=== PATIENT | male | born 1970 | race Caucasian/White ===

== ENCOUNTER 2022-06-05 16:26 | Inpatient (IN) | payer OTHER, SELFPAY ==
--- NOTE | ~2022-06-05 | CT_ITS ---
EXAMINATION: CT ABDOMEN AND PELVIS WITHOUT CONTRAST CLINICAL INFORMATION: 52-year-old male with abdominal pain and constipation, rule out obstruction. COMPARISON: None available. TECHNIQUE: Multidetector volumetric imaging was performed from the superior aspect of the liver through the pubic symphysis. Sagittal and coronal reformatted images were obtained on the technologist's workstation. This CT examination was performed using dose optimization techniques as appropriate, variously including the following: *Automated exposure control *Adjustment of mA and/or kV according to patient size (this includes techniques or standardized protocols for targeted exams where dose is matched to indication/reason for exam; i.e. extremities or head) *Use of iterative reconstruction technique DLP: 1072 mGy-cm FINDINGS: LUNG BASES: The lungs are clear. There is unhealed fracture of 8 deep on the left associated with pleural thickening. LIVER, GALLBLADDER, AND BILIARY TREE: The liver is normal in size, shape, and attenuation. No focal hepatic lesion or biliary ductal dilatation is present. The gallbladder is unremarkable with no evidence of radiopaque gallstones, gallbladder wall thickening, or obvious pericholecystic inflammatory changes. PANCREAS: Unremarkable. SPLEEN: Unremarkable. ADRENAL GLANDS: Unremarkable. KIDNEYS AND URETERS: The kidneys are normal in size, shape, and attenuation. No hydronephrosis, hydroureter, or calculi seen. No perinephric stranding. BLADDER: Unremarkable. GASTROINTESTINAL TRACT: The inflammatory changes surrounding sigmoid colon most likely diverticulitis versus colitis. Correlate clinically. Neoplastic etiology couldn't be excluded . Follow-up by endoscopy is recommended. There is microperforation in the lower wall of sigmoid colon with air bubbles outside the lumen of colon. There is unclear origin collection of gas outside the lumen of bowel in the left upper quadrant: better seen on images 57-47. ABDOMINAL WALL: There is fat-containing left and right inguinal hernias as well as small fat-containing umbilical hernia. LYMPH NODES: Normal. VASCULAR: Unremarkable. PELVIC VISCERA: Unremarkable. OSSEOUS STRUCTURES: There are multilevel degenerative spondylosis. CT/CT abdomen pelvis wo IV con IMPRESSION: Sigmoid colon diverticulitis versus colitis with microperforation. Small amount of free air collection in the mesentery Fleischner guidelines were followed.
[2022-06-05 16:40] VITALS: BP 148/69; PULSE 88; RESP 20; TEMP 37.7; O2SAT 96; BMI 36.6
--- NOTE | 2022-06-05 16:40 | ED.ABDPAIN ---
HPI - Abdominal Pain General Chief Complaint: Abdominal Pain <AMARA Pineda - Last Filed: 06/05/22 16:45> Stated Complaint: urgent care referral, abdomainl pain <AMARA Pineda - Last Filed: 06/05/22 16:45> Time Seen by Provider: 06/05/22 19:43 <AMARA Pineda - Last Filed: 06/05/22 16:45> Source: patient <Mars Mabry MD - Last Filed: 06/06/22 00:49> Mode of arrival: ambulatory <Mars Mabry MD - Last Filed: 06/06/22 00:49> Limitations: no limitations <Mars Mabry MD - Last Filed: 06/06/22 00:49> History of Present Illness HPI narrative: Patient no significant past medical history noticed pain in lower abdomen more on the left side for last 3 days got worse today at noon time assist with nausea poor appetite no fever or chills patient now had similar pain in the past no history of kidney stone no urinary complaints no blood in the stool patient never had colonoscopy <Mars Mabry MD - Last Filed: 06/06/22 00:49> Related Data Allergies/Adverse Reactions: Allergies Allergy/AdvReac Type Severity Reaction Status Date / Time No Known Allergies Allergy Verified 06/05/22 16:46 <AMARA Pineda - Last Filed: 06/05/22 16:45> Review of Systems Review of Systems Yes all other systems are reviewed and are negative <Mars Mabry MD - Last Filed: 06/06/22 00:49> [facility] Social History Social History: Social History Alcohol intake: current Alcohol intake frequency: holidays/special occasions only Alcohol type: beer Smoked in Last 30 Days: Yes Use of substances other than those prescribed or required for medical reasons: No Advance Directives: No Advance Directives Information Provided: Yes <AMARA Pineda - Last Filed: 06/05/22 16:45> Physical Exam ED Vital Signs: Vital Signs - 24 hr 06/05/22 16:40 06/05/22 19:32 06/05/22 20:09 Temperature 99.8 F 97.9 F Pulse Rate 88 95 Respiratory Rate 20 20 16 Blood Pressure 148/69 H 121/74 Pulse Oximetry 96 97 Oxygen Delivery Method Room Air Room Air 06/05/22 21:53 Temperature Pulse Rate 70 Respiratory Rate 20 Blood Pressure 118/42 L Pulse Oximetry 95 Oxygen Delivery Method Room Air BMI result Body Mass Index 36.6 <AMARA Pineda - Last Filed: 06/05/22 16:45> Vital Signs - 24 hr 06/05/22 16:40 06/05/22 19:32 06/05/22 20:09 Temperature 99.8 F 97.9 F Pulse Rate 88 95 Respiratory Rate 20 20 16 Blood Pressure 148/69 H 121/74 Pulse Oximetry 96 97 Oxygen Delivery Method Room Air Room Air 06/05/22 21:53 Temperature Pulse Rate 70 Respiratory Rate 20 Blood Pressure 118/42 L Pulse Oximetry 95 Oxygen Delivery Method Room Air BMI result Body Mass Index 36.6 <Mars Mabry MD - Last Filed: 06/06/22 00:49> Appearance: Alert. Oriented X3. No acute distress. Eyes: No pallor or icterus ENT: Pharynx normal. Oral Mucosa moist Neck: Normal inspection. Neck supple. CVS: Normal heart rate and rhythm. Pulses normal. Respiratory: No respiratory distress. Equal air entry bilateral, no wheezing/rales/rhonchi Abdomen: Soft guarding and tenderness left lower quadrant no rebound tenderness. Bowel sounds are present, no mass palpable, no CVA tenderness Skin: Skin warm and dry. Normal skin color. Normal skin turgor. Extremities: No lower extremity edema. No calf tenderness Neuro: Oriented X 3. No motor deficit. <Mars Mabry MD - Last Filed: 06/06/22 00:49> Course Course Course Narrative: RME-16:40pm - 52yoM presenting to the ED after being sent from [facility] urgent care for sharp lower abdominal pain with associated constipation that started on 06/03/2022 therefore he took meds citrate twice had a small amount movement on Monday and then on Monday he still felt like he had to go therefore he took a whole bottle of Mag citrate and had large amount of stools. Then he went for a walk after eating a baseball amount of food and started having a sharp pain where it was so painful he bent over and cried. Reports he has a high pain tolerance. Reports he has never had this in the past. Was given Toradol IM prior to arrival 60 mg by [facility]. Reports mild symptomatic relief with his pain. Also had an enema today that his helps him with. Last bowel movement was on Monday. Denies any nausea/vomiting, chest pain, shortness of breath, fevers black or bloody stools or any other symptoms complaints or concerns at this time. Plan: Labs, UA, EKG, CT scan abdomen pelvis ordered at this time patient to be sent back to the waiting room to be evaluated in the ED. <AMARA Pineda - Last Filed: 06/05/22 16:45> Medical Decision Making Medical Decision Making [facility] Narrative: Patient lower abdominal pain workup showed diverticulitis in sigmoid colon with microperforation will admit patient for IV antibiotics and surgical re-evaluation <Mars Mabry MD - Last Filed: 06/06/22 00:49> Lab Data [facility] Lab Attestation statement: I reviewed the patient's lab results. <Mars Mabry MD - Last Filed: 06/06/22 00:49> Result Diagrams: 06/05/22 17:35 06/05/22 17:35 <AMARA Pineda - Last Filed: 06/05/22 16:45> Labs: Lab Results 06/05/22 06/05/22 06/05/22 Range/Units 17:35 17:35 17:35 WBC 11.7 H (4.8-10.8) X10*3/uL RBC 4.94 (4.60-5.80) X10*6/uL Hgb 14.4 (14.0-18.0) g/dl Hct 43.6 (42.0-52.0) % MCV 88.3 (80.0-98.0) fL MCH 29.1 (27.0-33.0) pg MCHC 33.0 (31.0-36.0) g/dl RDW 13.0 (11.0-16.0) % Plt Count 266 (160-400) X10*3/uL MPV 8.9 L (9.4-12.4) fL Immature Gran % (Auto) 0.9 H (0.0-0.4) % Neut % (Auto) 88.1 H (45-73) % Lymph % (Auto) 7.1 L (20-40) % [place] % (Auto) 3.7 (2-11) % Eos % (Auto) 0.1 (0-4) % Baso % (Auto) 0.1 (0-2) % Lymph # (Auto) 0.8 L (1.2-4.9) X10*3/uL [place] # (Auto) 0.4 (0.1-1.2) X10*3/uL Eos # (Auto) 0.0 (0.0-0.4) X10*3/uL Baso # (Auto) 0.0 (0.0-0.2) X10*3/uL Abs Immat Gran (auto) 0.10 H (0.00-0.03) X10*3/uL Absolute Neuts (auto) 10.3 H (2.0-8.3) x10*3/uL Absolute Nucleated RBC 0.000 (0.0-0.012) X10*3/uL Nucleated RBC % (auto) 0.0 (0.0-0.2) /100WBC PT 11.8 (10.0-13.1) SEC INR 1.0 (0.9-1.1) Sodium 139 (135-145) mmol/L Potassium 4.1 (3.3-5.1) mmol/L Chloride 106 (96-108) mmol/L Carbon Dioxide 23 (22-29) mmol/L Anion Gap 14 (12-20) BUN 11 (9-16) mg/dL Creatinine 0.91 (0.5-1.4) mg/dL Estim Creat Clear Calc 128.3 Estimated GFR > 60 Random Glucose 107 (60-115) mg/dL Lactic Acid (0.5-2.0) mmol/L Calcium 8.8 (8.4-10.2) mg/dL Magnesium 2.3 (1.6-2.6) mg/dL Total Bilirubin 0.3 (0.0-1.0) mg/dL AST 11 (5-37) U/L ALT 12 (0-40) U/L Alkaline Phosphatase 71 (39-117) U/L Total Protein 6.7 (6.5-8.0) g/dL Albumin 3.9 (3.5-5.0) g/dL Lipase 21 (8-78) U/L Urine Color Urine Appearance Urine pH (5.0-9.0) Ur Specific [place] (1.005-1.025) Urine Protein (Neg-Trace) mg/dL Urine Glucose (UA) (Negative) mg/dL Urine Ketones (Negative) mg/dL Urine Blood (Negative) Urine Nitrite (Negative) Ur Leukocyte Esterase (Negative) Urine RBC (0-2) /HPF Urine WBC (0-5) /HPF Ur Squamous Epith Cells (0-2) /HPF Urine Bacteria (None Seen) Hyaline Casts (0-2) /LPF Influenza Type A (PCR) (Negative) Influenza Type B (PCR) (Negative) RSV RNA Qual (PCR) (Negative) SARS-CoV-2 RNA (RT-PCR) (Negative) 06/05/22 06/05/22 06/05/22 Range/Units 17:35 20:00 22:03 WBC (4.8-10.8) X10*3/uL RBC (4.60-5.80) X10*6/uL Hgb (14.0-18.0) g/dl Hct (42.0-52.0) % MCV (80.0-98.0) fL MCH (27.0-33.0) pg MCHC (31.0-36.0) g/dl RDW (11.0-16.0) % Plt Count (160-400) X10*3/uL MPV (9.4-12.4) fL Immature Gran % (Auto) (0.0-0.4) % Neut % (Auto) (45-73) % Lymph % (Auto) (20-40) % [place] % (Auto) (2-11) % Eos % (Auto) (0-4) % Baso % (Auto) (0-2) % Lymph # (Auto) (1.2-4.9) X10*3/uL [place] # (Auto) (0.1-1.2) X10*3/uL Eos # (Auto) (0.0-0.4) X10*3/uL Baso # (Auto) (0.0-0.2) X10*3/uL Abs Immat Gran (auto) (0.00-0.03) X10*3/uL Absolute Neuts (auto) (2.0-8.3) x10*3/uL Absolute Nucleated RBC (0.0-0.012) X10*3/uL Nucleated RBC % (auto) (0.0-0.2) /100WBC PT (10.0-13.1) SEC INR (0.9-1.1) Sodium (135-145) mmol/L Potassium (3.3-5.1) mmol/L Chloride (96-108) mmol/L Carbon Dioxide (22-29) mmol/L Anion Gap (12-20) BUN (9-16) mg/dL Creatinine (0.5-1.4) mg/dL Estim Creat Clear Calc Estimated GFR Random Glucose (60-115) mg/dL Lactic Acid 1.0 (0.5-2.0) mmol/L Calcium (8.4-10.2) mg/dL Magnesium (1.6-2.6) mg/dL Total Bilirubin (0.0-1.0) mg/dL AST (5-37) U/L ALT (0-40) U/L Alkaline Phosphatase (39-117) U/L Total Protein (6.5-8.0) g/dL Albumin (3.5-5.0) g/dL Lipase (8-78) U/L Urine Color Yellow Urine Appearance Clear Urine pH 5.5 (5.0-9.0) Ur Specific [place] 1.020 (1.005-1.025) Urine Protein 30 (1+) H (Neg-Trace) mg/dL Urine Glucose (UA) Negative (Negative) mg/dL Urine Ketones Trace (Negative) mg/dL Urine Blood Negative (Negative) Urine Nitrite Negative (Negative) Ur Leukocyte Esterase Negative (Negative) Urine RBC 3-5 H (0-2) /HPF Urine WBC 0-5 (0-5) /HPF Ur Squamous Epith Cells 0-2 (0-2) /HPF Urine Bacteria None Seen (None Seen) Hyaline Casts 0-2 (0-2) /LPF Influenza Type A (PCR) NEGATIVE (Negative) Influenza Type B (PCR) NEGATIVE (Negative) RSV RNA Qual (PCR) NEGATIVE (Negative) SARS-CoV-2 RNA (RT-PCR) NEGATIVE (Negative) <AMARA Pineda - Last Filed: 06/05/22 16:45> Lab Results 06/05/22 06/05/22 06/05/22 Range/Units 17:35 17:35 17:35 WBC 11.7 H (4.8-10.8) X10*3/uL RBC 4.94 (4.60-5.80) X10*6/uL Hgb 14.4 (14.0-18.0) g/dl Hct 43.6 (42.0-52.0) % MCV 88.3 (80.0-98.0) fL MCH 29.1 (27.0-33.0) pg MCHC 33.0 (31.0-36.0) g/dl RDW 13.0 (11.0-16.0) % Plt Count 266 (160-400) X10*3/uL MPV 8.9 L (9.4-12.4) fL Immature Gran % (Auto) 0.9 H (0.0-0.4) % Neut % (Auto) 88.1 H (45-73) % Lymph % (Auto) 7.1 L (20-40) % [place] % (Auto) 3.7 (2-11) % Eos % (Auto) 0.1 (0-4) % Baso % (Auto) 0.1 (0-2) % Lymph # (Auto) 0.8 L (1.2-4.9) X10*3/uL [place] # (Auto) 0.4 (0.1-1.2) X10*3/uL Eos # (Auto) 0.0 (0.0-0.4) X10*3/uL Baso # (Auto) 0.0 (0.0-0.2) X10*3/uL Abs Immat Gran (auto) 0.10 H (0.00-0.03) X10*3/uL Absolute Neuts (auto) 10.3 H (2.0-8.3) x10*3/uL Absolute Nucleated RBC 0.000 (0.0-0.012) X10*3/uL Nucleated RBC % (auto) 0.0 (0.0-0.2) /100WBC PT 11.8 (10.0-13.1) SEC INR 1.0 (0.9-1.1) Sodium 139 (135-145) mmol/L Potassium 4.1 (3.3-5.1) mmol/L Chloride 106 (96-108) mmol/L Carbon Dioxide 23 (22-29) mmol/L Anion Gap 14 (12-20) BUN 11 (9-16) mg/dL Creatinine 0.91 (0.5-1.4) mg/dL Estim Creat Clear Calc 128.3 Estimated GFR > 60 Random Glucose 107 (60-115) mg/dL Lactic Acid (0.5-2.0) mmol/L Calcium 8.8 (8.4-10.2) mg/dL Magnesium 2.3 (1.6-2.6) mg/dL Total Bilirubin 0.3 (0.0-1.0) mg/dL AST 11 (5-37) U/L ALT 12 (0-40) U/L Alkaline Phosphatase 71 (39-117) U/L Total Protein 6.7 (6.5-8.0) g/dL Albumin 3.9 (3.5-5.0) g/dL Lipase 21 (8-78) U/L Urine Color Urine Appearance Urine pH (5.0-9.0) Ur Specific [place] (1.005-1.025) Urine Protein (Neg-Trace) mg/dL Urine Glucose (UA) (Negative) mg/dL Urine Ketones (Negative) mg/dL Urine Blood (Negative) Urine Nitrite (Negative) Ur Leukocyte Esterase (Negative) Urine RBC (0-2) /HPF Urine WBC (0-5) /HPF Ur Squamous Epith Cells (0-2) /HPF Urine Bacteria (None Seen) Hyaline Casts (0-2) /LPF Influenza Type A (PCR) (Negative) Influenza Type B (PCR) (Negative) RSV RNA Qual (PCR) (Negative) SARS-CoV-2 RNA (RT-PCR) (Negative) 06/05/22 06/05/22 06/05/22 Range/Units 17:35 20:00 22:03 WBC (4.8-10.8) X10*3/uL RBC (4.60-5.80) X10*6/uL Hgb (14.0-18.0) g/dl Hct (42.0-52.0) % MCV (80.0-98.0) fL MCH (27.0-33.0) pg MCHC (31.0-36.0) g/dl RDW (11.0-16.0) % Plt Count (160-400) X10*3/uL MPV (9.4-12.4) fL Immature Gran % (Auto) (0.0-0.4) % Neut % (Auto) (45-73) % Lymph % (Auto) (20-40) % [place] % (Auto) (2-11) % Eos % (Auto) (0-4) % Baso % (Auto) (0-2) % Lymph # (Auto) (1.2-4.9) X10*3/uL [place] # (Auto) (0.1-1.2) X10*3/uL Eos # (Auto) (0.0-0.4) X10*3/uL Baso # (Auto) (0.0-0.2) X10*3/uL Abs Immat Gran (auto) (0.00-0.03) X10*3/uL Absolute Neuts (auto) (2.0-8.3) x10*3/uL Absolute Nucleated RBC (0.0-0.012) X10*3/uL Nucleated RBC % (auto) (0.0-0.2) /100WBC PT (10.0-13.1) SEC INR (0.9-1.1) Sodium (135-145) mmol/L Potassium (3.3-5.1) mmol/L Chloride (96-108) mmol/L Carbon Dioxide (22-29) mmol/L Anion Gap (12-20) BUN (9-16) mg/dL Creatinine (0.5-1.4) mg/dL Estim Creat Clear Calc Estimated GFR Random Glucose (60-115) mg/dL Lactic Acid 1.0 (0.5-2.0) mmol/L Calcium (8.4-10.2) mg/dL Magnesium (1.6-2.6) mg/dL Total Bilirubin (0.0-1.0) mg/dL AST (5-37) U/L ALT (0-40) U/L Alkaline Phosphatase (39-117) U/L Total Protein (6.5-8.0) g/dL Albumin (3.5-5.0) g/dL Lipase (8-78) U/L Urine Color Yellow Urine Appearance Clear Urine pH 5.5 (5.0-9.0) Ur Specific [place] 1.020 (1.005-1.025) Urine Protein 30 (1+) H (Neg-Trace) mg/dL Urine Glucose (UA) Negative (Negative) mg/dL Urine Ketones Trace (Negative) mg/dL Urine Blood Negative (Negative) Urine Nitrite Negative (Negative) Ur Leukocyte Esterase Negative (Negative) Urine RBC 3-5 H (0-2) /HPF Urine WBC 0-5 (0-5) /HPF Ur Squamous Epith Cells 0-2 (0-2) /HPF Urine Bacteria None Seen (None Seen) Hyaline Casts 0-2 (0-2) /LPF Influenza Type A (PCR) NEGATIVE (Negative) Influenza Type B (PCR) NEGATIVE (Negative) RSV RNA Qual (PCR) NEGATIVE (Negative) SARS-CoV-2 RNA (RT-PCR) NEGATIVE (Negative) <Mars Mabry MD - Last Filed: 06/06/22 00:49> Radiology Impression Discussion of test interpretation with radiology: I have reviewed the radiologist's reading. <Mars Mabry MD - Last Filed: 06/06/22 00:49> Radiologist Impression: Sigmoid colon diverticulitis versus colitis with microperforation. Small amount of free air collection in the mesentery ? Fleischner guidelines were followed. <Mars Mabry MD - Last Filed: 06/06/22 00:49> Medications Administered Generic Name Dose Route Start Last Admin Trade Name Freq PRN Reason Stop Dose Admin Sodium Chloride 3 ml 06/06/22 00:00 06/06/22 00:44 0.9 % Sodium Chloride Flush 3 Ml Syringe IVFLUSH Not Given QSHIFT DEREJE Discontinued Medications Generic Name Dose Route Start Last Admin Trade Name Freq PRN Reason Stop Dose Admin Sodium Chloride 1,000 mls @ 999 mls/hr 06/05/22 19:44 06/05/22 21:30 Ns IV 06/05/22 20:44 Infused .Q1H1M ONE Infusion Piperacillin Sod/Tazobactam 50 mls @ 100 mls/hr 06/05/22 19:45 06/05/22 20:45 Sod 3.375 gm/ Sodium Chloride IV 06/05/22 20:14 Infused ONCE ONE Infusion Morphine Sulfate 4 mg 06/05/22 19:45 06/05/22 20:09 Morphine Sulfate 4 Mg/Ml Cartridge IVPUSH 06/05/22 19:46 4 mg ONCE ONE Administration Protocol Ondansetron HCl 4 mg 06/05/22 19:45 06/05/22 20:09 Ondansetron Hcl 4 Mg/2 Ml Vial IVPUSH 06/05/22 19:46 4 mg ONCE ONE Administration <AMARA Pineda - Last Filed: 06/05/22 16:45> Medications Administered Generic Name Dose Route Start Last Admin Trade Name Freq PRN Reason Stop Dose Admin Sodium Chloride 3 ml 06/06/22 00:00 06/06/22 00:44 0.9 % Sodium Chloride Flush 3 Ml Syringe IVFLUSH Not Given QSHIFT DEREJE Discontinued Medications Generic Name Dose Route Start Last Admin Trade Name Freq PRN Reason Stop Dose Admin Sodium Chloride 1,000 mls @ 999 mls/hr 06/05/22 19:44 06/05/22 21:30 Ns IV 06/05/22 20:44 Infused .Q1H1M ONE Infusion Piperacillin Sod/Tazobactam 50 mls @ 100 mls/hr 06/05/22 19:45 06/05/22 20:45 Sod 3.375 gm/ Sodium Chloride IV 06/05/22 20:14 Infused ONCE ONE Infusion Morphine Sulfate 4 mg 06/05/22 19:45 06/05/22 20:09 Morphine Sulfate 4 Mg/Ml Cartridge IVPUSH 06/05/22 19:46 4 mg ONCE ONE Administration Protocol Ondansetron HCl 4 mg 06/05/22 19:45 06/05/22 20:09 Ondansetron Hcl 4 Mg/2 Ml Vial IVPUSH 06/05/22 19:46 4 mg ONCE ONE Administration <Mars Mabry MD - Last Filed: 06/06/22 00:49> Discharge Plan Discharge Clinical Impression: Diverticulitis <AMARA Pineda - Last Filed: 06/05/22 16:45> Patient Disposition: Admitted As Inpatient <AMARA Pineda - Last Filed: 06/05/22 16:45>
[2022-06-05 17:48] LABS: MANUAL DIFF FLAG NO
[2022-06-05 17:57] LABS: Prothrombin Time 11.8 SEC (10.0-13.1)
[2022-06-05 18:04] LABS: Alanine Aminotransferase 12 U/L (0-40); Albumin Level 3.9 g/dL (3.5-5.0); Alkaline Phosphatase 71 U/L (39-117); Anion Gap 14 (12-20); Aspartate Amino Transferase 11 U/L (5-37); Bilirubin Total 0.3 mg/dL (0.0-1.0); Blood Urea Nitrogen 11 mg/dL (9-16); Calcium 8.8 mg/dL (8.4-10.2); Carbon Dioxide 23 mmol/L (22-29); Chloride 106 mmol/L (96-108); Creatinine Clr Calc Pharmacy 128.3; Estimated Glomerular Filt Rate > 60; Glucose Random 107 mg/dL (60-115); Lipase 21 U/L (8-78); Magnesium 2.3 mg/dL (1.6-2.6); Potassium 4.1 mmol/L (3.3-5.1); Sodium 139 mmol/L (135-145); Total Protein 6.7 g/dL (6.5-8.0)
[2022-06-05 18:14] LABS: Basophils Percent Auto 0.1 % (0-2); Eosinophils Percent Auto 0.1 % (0-4); Hematocrit 43.6 % (42.0-52.0); Hemoglobin 14.4 g/dl (14.0-18.0); Imm Gran Pct Auto 0.9 % (0.0-0.4); Lymphocytes Absolute Auto 0.8 X10*3/uL (1.2-4.9); Lymphocytes Percent Auto 7.1 % (20-40); Mean Corpuscular Hemoglobin 29.1 pg (27.0-33.0); Mean Corpuscular Volume 88.3 fL (80.0-98.0); Mean Platelet Volume 8.9 fL (9.4-12.4); Monocytes Absolute Auto 0.4 X10*3/uL (0.1-1.2); Monocytes Percent Auto 3.7 % (2-11); Neutrophils Absolute Auto 10.3 x10*3/uL (2.0-8.3); Neutrophils Percent Auto 88.1 % (45-73); Platelet Count 266 X10*3/uL (160-400); Red Blood Count 4.94 X10*6/uL (4.60-5.80); White Blood Count 11.7 X10*3/uL (4.8-10.8)
[2022-06-05 18:27] LABS: Influenza A PCR NEGATIVE (Negative); Influenza B PCR NEGATIVE (Negative); Resp Syncy Virus RNA Qual PCR NEGATIVE (Negative); SARS COV2 PCR INHOUSE NEGATIVE (Negative)
[2022-06-05 19:32] VITALS: BP 121/74; PULSE 95; RESP 20; TEMP 36.6; O2SAT 97
[2022-06-05 20:09] VITALS: RESP 16
[2022-06-05] MEDS: ondansetron HCL 4 MG/2 ML VIAL IVPUSH (20:09)
[2022-06-05] MEDS: Piperacillin Sodium/Tazobactam 3.375 GM in 0.9 % Sodium Chloride 50 ML IV (20:09)
[2022-06-05] MEDS: Morphine Sulfate 4 MG/ML CARTRIDGE IVPUSH (20:09)
[2022-06-05] MEDS: 0.9 % Sodium Chloride 1,000 ML 999 ML IV (20:12)
--- NOTE | 2022-06-05 20:17 | PC.NURSE ---
Patent is alert and oriented x3. VSS. Patient is able to make his needs know. Patient complains of constant lower abdominal pain 7/10 at present. Provider at bedside, informed patient that he will stay overnight for diagnosis of diverticulitis with microperforation and instructed patient in need for NPO to rest his bowels. patient verbalized understanding. Per Dr. Mabry blood draw needed for lactic acid only, blood cultures are not needed at this time. 20 G IV line established in R AC, lactic acid drawn and sent to the lab. Patient medicated per APR. Call [place] withim patient's reach. Patient's spouse is at bedside.
[2022-06-05 21:53] VITALS: BP 118/42; PULSE 70; RESP 20; O2SAT 95
[2022-06-05 22:12] LABS: Appearance Urine Clear; Color Urine Yellow; Glucose Urine UA Negative (Negative); Leukocyte Esterase Urine Negative (Negative); Nitrite Urine Negative (Negative); PH 5.5 (5.0-9.0); UMIC TRIGGER UACC YES; Urine Blood Negative (Negative); Urine Ketones Trace mg/dL (Negative); Urine Protein 30 (1+) mg/dL (Neg-Trace)
[2022-06-05 22:14] LABS: Bacteria Urine None Seen (None Seen); Hyaline Casts Urine 0-2 /LPF (0-2); Squamous Epithelial Cell Urine 0-2 /HPF (0-2); WBC Urine 0-5 /HPF (0-5)
--- NOTE | 2022-06-05 23:21 | PM.IMHP ---
History of Present Illness Date of Service: 06/05/22 Chief Complaint: Abdominal Pain This is a 52-year-old male with no pertinent past medical history and not on prescription medications presents to the emergency department for evaluation of abdominal discomfort. Patient states that it started 3 days ago, on the left side, constant, nonradiating and without any relieving factors. Soon it generalized associated with nausea and poor appetite. No similar complaints in the past. Patient denies fever, chills, vomiting, chest discomfort, palpitations, shortness of breath, changes in urinary habits. Does endorse constipation. In the emergency department imaging concerning for diverticulitis with questionable microperforation. Review of Systems Constitutional: Constitutional: Reports lethargy Cardiovascular: Cardiovascular: Reports no additional cardiovascular complaints Respiratory: Respiratory: Reports no additional respiratory complaints Gastrointestinal: Gastrointestinal: Reports abdominal pain and Reports nausea Genitourinary: Genitourinary: Reports no additional male genitourinary complaints PMFSH Pertinent family history: No family history of CAD Social History Alcohol intake: current Alcohol intake frequency: holidays/special occasions only Alcohol type: beer Smoked in Last 30 Days: Yes Use of substances other than those prescribed or required for medical reasons: No Advance Directives: No Advance Directives Information Provided: Yes Meds Allergies Allergy/AdvReac Type Severity Reaction Status Date / Time No Known Allergies Allergy Verified 06/05/22 16:46 Physical Exam Vital Signs and Narrative: Vital Signs: Last Vital Signs Temp 97.9 F 06/05/22 19:32 Pulse 70 06/05/22 21:53 Resp 20 06/05/22 21:53 BP 118/42 L 06/05/22 21:53 Pulse Ox 95 06/05/22 21:53 O2 Del Method Room Air 06/05/22 21:53 BMI result Body Mass Index 36.6 Middle-aged male lying in bed in mild distress Neck supple, no JVD Regular rate and rhythm, S1-S2 heard Regular breath sounds bilaterally, no wheezing or crackles appreciated Abdomen with generalized tenderness, no guarding, no rigidity, no rebound tenderness Patient is awake, alert and oriented to self, place, time and person ; no focal motor deficit Psych: Normal mood No pedal edema Results Labs 06/05/22 17:35 06/05/22 17:35 Labs: Laboratory Results - last 24 hr 06/05/22 06/05/22 06/05/22 17:35 17:35 17:35 MCV 88.3 MCH 29.1 MCHC 33.0 RDW 13.0 Plt Count 266 MPV 8.9 L Immature Gran % (Auto) 0.9 H Neut % (Auto) 88.1 H Lymph % (Auto) 7.1 L [place] % (Auto) 3.7 Eos % (Auto) 0.1 Baso % (Auto) 0.1 Lymph # (Auto) 0.8 L [place] # (Auto) 0.4 Eos # (Auto) 0.0 Baso # (Auto) 0.0 Abs Immat Gran (auto) 0.10 H Absolute Neuts (auto) 10.3 H Absolute Nucleated RBC 0.000 Nucleated RBC % (auto) 0.0 PT 11.8 INR 1.0 Anion Gap 14 Estim Creat Clear Calc 128.3 Estimated GFR > 60 Random Glucose 107 Lactic Acid Calcium 8.8 Magnesium 2.3 Total Bilirubin 0.3 AST 11 ALT 12 Alkaline Phosphatase 71 Total Protein 6.7 Albumin 3.9 Lipase 21 Urine Color Urine Appearance Urine pH Ur Specific [place] Urine Protein Urine Glucose (UA) Urine Ketones Urine Blood Urine Nitrite Ur Leukocyte Esterase Urine RBC Urine WBC Ur Squamous Epith Cells Urine Bacteria Hyaline Casts Influenza Type A (PCR) Influenza Type B (PCR) RSV RNA Qual (PCR) SARS-CoV-2 RNA (RT-PCR) 06/05/22 06/05/22 06/05/22 17:35 20:00 22:03 MCV MCH MCHC RDW Plt Count MPV Immature Gran % (Auto) Neut % (Auto) Lymph % (Auto) [place] % (Auto) Eos % (Auto) Baso % (Auto) Lymph # (Auto) [place] # (Auto) Eos # (Auto) Baso # (Auto) Abs Immat Gran (auto) Absolute Neuts (auto) Absolute Nucleated RBC Nucleated RBC % (auto) PT INR Anion Gap Estim Creat Clear Calc Estimated GFR Random Glucose Lactic Acid 1.0 Calcium Magnesium Total Bilirubin AST ALT Alkaline Phosphatase Total Protein Albumin Lipase Urine Color Yellow Urine Appearance Clear Urine pH 5.5 Ur Specific [place] 1.020 Urine Protein 30 (1+) H Urine Glucose (UA) Negative Urine Ketones Trace Urine Blood Negative Urine Nitrite Negative Ur Leukocyte Esterase Negative Urine RBC 3-5 H Urine WBC 0-5 Ur Squamous Epith Cells 0-2 Urine Bacteria None Seen Hyaline Casts 0-2 Influenza Type A (PCR) NEGATIVE Influenza Type B (PCR) NEGATIVE RSV RNA Qual (PCR) NEGATIVE SARS-CoV-2 RNA (RT-PCR) NEGATIVE Imaging Radiologist's Impressions: Impressions Abdomen/Pelvis CT 06/05/22 17:20 IMPRESSION: Sigmoid colon diverticulitis versus colitis with microperforation. Small amount of free air collection in the mesentery Fleischner guidelines were followed. Assessment and Plan (1) Diverticulitis: Status: Acute Plan This is a 52-year-old male with no pertinent past medical history and not on prescription medications presents to the emergency department for evaluation of abdominal discomfort. #. Acute sigmoid diverticulitis: Will admit patient for pain control. Initiating empiric IV antibiotics. Blood cultures and lactic acid obtained. Will consult General surgery for questionable microperforation. Does not have an acute abdomen at admission. Will keep NPO DVT prophylaxis: Lovenox 40 mg daily NPO Full code Admit as inpatient and will require two night minimum hospital stay for IV antibiotics and IV opioids p.r.n. Time Spent With Patient Time: Total time managing care of this patient today ____ minutes. Quality Stroke Does the patient have a stroke diagnosis?: No VTE Prior VTE?: No VTE Risk Level:: Medical - moderate - high VTE Device Contraindication: Treatment Not Indicated VTE Drug Contraindication: N/A - Med Ordered
--- OUTSIDE RECORDS SUMMARY | 2022-06-05 23:31 | XMS_ITS | Continuity of Care Document ---
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 Refills 0, Soft Stop, Pain , Moderate, 10/28/19 23:37:00 EDT, Route to Pharmacy Electronically, [facility]/pharmacy #[id number], Partial fill uponpatient request, 182.88, cm, 06/12/19 9:34:00 EDT,... 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 large sneeze and felt a crack in the middle of his chest. Has ongoing severe pain just to R of sternum; Reason: Other:; Traumatic Chest Pain; Clinical Question(s): Other:; Pneumothorax, Fracture COMPARISON: None. FINDINGS: LINES AND TUBES: None. LUNGS AND PLEURA: Low lung volumes with mild basilar atelectasis. Lungs are otherwise clear with no consolidation. No pleural effusion. No pneumothorax. HEART, MEDIASTINUM AND FORTUNATO: Heart is normal in size. Normal mediastinal and hilar contour. BONES AND SOFT TISSUES: No acute abnormality. IMPRESSION: Low lung volumes with mild basilar atelectasis. No acute abnormality. WSN: [id number] Ordering Physician: Rashaun Price Dictated By: William Hart MD Dictated Date/Time: 10/28/19 7:07 pm Reviewed By: William Hart MD Signed By: William Hart MD Signed Date/Time: 10/28/19 7:07 pm Transcribed By: TIERRA Transcribed Date/Time: 10/28/19 7:07 pm Vital Signs Most recent to oldest [Reference Range]: 1 2 3 Oxygen Saturation [94-100 %] 99 % (10/28/19 11:50 PM) 99 % (10/28/19 9:22 PM) 97 % (10/28/19 8:17 PM) Pulse Rate [55-90 bpm] 78 bpm (10/28/19 11:50 PM) 80 bpm (10/28/19 9:22 PM) 89 bpm (10/28/19 8:17 PM) Blood Pressure [90-138/55-84 mm Hg] 142/74mm Hg *H* (10/28/19 11:50 PM) 113/63mm Hg (10/28/19 9:22 PM) 119/64mm Hg (10/28/19 8:17 PM) Respiratory Rate [16-30 br/min] 18 br/min (10/28/19 11:50 PM) 18 br/min (10/28/19 11:49 PM) 18 br/min (10/28/19 9:22 PM) Temperature [96.8-100.4 DegF] 98.1 DegF (10/28/19 6:53 PM) Mode of Delivery (Oxygen) Room air (10/28/19 11:50 PM) Room air (10/28/19 9:22 PM) Room air (10/28/19 8:17 PM) Blood pressure sites Arm, left (10/28/19 11:50 PM) Arm, left (10/28/19 9:22 PM) Arm, left (10/28/19 8:17 PM) Temperature Route Oral (10/28/19 6:53 PM)
[2022-06-06 01:24] VITALS: BP 113/61; PULSE 71; RESP 20; O2SAT 96
--- NOTE | 2022-06-06 02:58 | PC.NURSE ---
video operator outreached hospitalist regarding need for blood cultures as pt with antibiotics orders. Per Dr Yee pt has already received ABX and is not septic at this time so cultures are not required/needed.
[2022-06-06] MEDS: Piperacillin Sodium/Tazobactam 4.5 GM in 0.9 % Sodium Chloride 100 ML IV ×4 (02:59→19:32)
[2022-06-06] MEDS: Morphine Sulfate 4 MG/ML CARTRIDGE IVPUSH ×4 (03:15→19:32)
[2022-06-06 05:59] LABS: MANUAL DIFF FLAG NO
[2022-06-06 06:07] LABS: Basophils Percent Auto 0.1 % (0-2); Eosinophils Percent Auto 0.4 % (0-4); Hemoglobin 13.3 g/dl (14.0-18.0); Imm Gran Abs Auto 0.04 X10*3/uL (0.00-0.03); Imm Gran Pct Auto 0.4 % (0.0-0.4); Lymphocytes Absolute Auto 1.1 X10*3/uL (1.2-4.9); Mean Corpuscular HGB Conc 32.4 g/dl (31.0-36.0); Mean Corpuscular Hemoglobin 29.2 pg (27.0-33.0); Mean Corpuscular Volume 89.9 fL (80.0-98.0); Mean Platelet Volume 8.8 fL (9.4-12.4); Monocytes Absolute Auto 0.5 X10*3/uL (0.1-1.2); Monocytes Percent Auto 5.5 % (2-11); Neutrophils Absolute Auto 7.3 x10*3/uL (2.0-8.3); Neutrophils Percent Auto 81.6 % (45-73); Platelet Count 263 X10*3/uL (160-400); Red Blood Count 4.56 X10*6/uL (4.60-5.80); Red Cell Distribution Width 13.2 % (11.0-16.0); White Blood Count 8.9 X10*3/uL (4.8-10.8)
[2022-06-06 06:20] LABS: Anion Gap 10 (12-20); Blood Urea Nitrogen 7 mg/dL (9-16); Calcium 8.4 mg/dL (8.4-10.2); Carbon Dioxide 25 mmol/L (22-29); Chloride 108 mmol/L (96-108); Creatinine Clr Calc Pharmacy 137.3; Estimated Glomerular Filt Rate > 60; Glucose Random 102 mg/dL (60-115); Sodium 139 mmol/L (135-145)
--- NOTE | 2022-06-06 06:48 | PC.NURSE ---
Assumed care of pt. at 2300. Pt. resting in bed at this time. Pt. reported pain and was medicated with morphine per APR. IV abx given. Cultures were not obtained, vp information technology spoke with hospitalist and no need for cultures at this point. Pt. is alert and oriented.
--- NOTE | 2022-06-06 07:05 | PM.CNGS ---
History of Present Illness Consult details Consult date: 06/06/22 Narrative: Patient is a 52-year-old male presents here with approximately 1 day history of progressively worsening lower abdominal pain. Because of progressive symptoms, he presents to the emergency department for further evaluation. He has never had such symptoms before. He is passing flatus currently. Prior to this, patient was tolerating a regular diet, having normal bowel habits. He had colonoscopy approximately 10 years ago which he states was within normal limits. Chart was reviewed and patient evaluated. [facility] Social History Social History Alcohol intake: current Alcohol intake frequency: holidays/special occasions only Alcohol type: beer Smoked in Last 30 Days: Yes Use of substances other than those prescribed or required for medical reasons: No Advance Directives: No Advance Directives Information Provided: Yes Meds Allergies Allergy/AdvReac Type Severity Reaction Status Date / Time No Known Allergies Allergy Verified 06/05/22 16:46 Active Medications: Current Medications Acetaminophen (Acetaminophen 325 Mg Tablet) 650 mg PO Q6H PRN PRN Reason: Pain, Mild (Pain Scale 1-3) Enoxaparin Sodium (Enoxaparin Sodium 40 Mg/0.4 Ml Syringe) 40 mg SUBCUT Q24H [facility] Piperacillin Sod/Tazobactam (Sod 4.5 gm/ Sodium Chloride) 100 mls @ 200 mls/hr IV Q6H [facility] Last Infusion: 06/06/22 06:57 Dose: Infused Melatonin (Melatonin 3 Mg Tablet) 6 mg PO BEDTIME PRN PRN Reason: Insomnia Morphine Sulfate (Morphine Sulfate 4 Mg/Ml Cartridge) 4 mg IVPUSH Q4H PRN; Protocol PRN Reason: Pain, Severe (Pain Scale 7-10) Last Admin: 06/06/22 03:15 Dose: 4 mg Ondansetron HCl (Ondansetron Hcl 4 Mg/2 Ml Vial) 4 mg IVPUSH Q8H PRN PRN Reason: Nausea and Vomiting Sodium Chloride (0.9 % Sodium Chloride Flush 3 Ml Syringe) 3 ml IVFLUSH QSHIFT [facility] Last Admin: 06/06/22 00:44 Dose: Not Given Physical Exam Vital Signs: Vital Signs: Last Vital Signs Temp 97.9 F 06/05/22 19:32 Pulse 71 04/17/23 01:24 Resp 20 06/06/22 01:24 BP 113/61 06/06/22 01:24 Pulse Ox 96 06/06/22 01:24 O2 Del Method Room Air 06/06/22 01:24 BMI result Body Mass Index 36.6 GI: Other: Abdominal exam is most noteworthy for a very corpulent abdomen with mild left lower quadrant tenderness localized. No evidence of guarding, or rigidity. Results Labs 06/06/22 05:43 06/06/22 05:43 Labs: Abnormal lab results 06/05/22 06/05/22 06/06/22 Range/Units 17:35 22:03 05:43 WBC 11.7 H (4.8-10.8) X10*3/uL RBC 4.56 L (4.60-5.80) X10*6/uL Hgb 13.3 L (14.0-18.0) g/dl Hct 41.0 L (42.0-52.0) % MPV 8.9 L 8.8 L (9.4-12.4) fL Immature Gran % (Auto) 0.9 H (0.0-0.4) % Neut % (Auto) 88.1 H 81.6 H (45-73) % Lymph % (Auto) 7.1 L 12.0 L (20-40) % Lymph # (Auto) 0.8 L 1.1 L (1.2-4.9) X10*3/uL Abs Immat Gran (auto) 0.10 H 0.04 H (0.00-0.03) X10*3/uL Absolute Neuts (auto) 10.3 H (2.0-8.3) x10*3/uL Anion Gap (12-20) BUN (9-16) mg/dL Urine Protein 30 (1+) H (Neg-Trace) mg/dL Urine RBC 3-5 H (0-2) /HPF 06/06/22 Range/Units 05:43 WBC (4.8-10.8) X10*3/uL RBC (4.60-5.80) X10*6/uL Hgb (14.0-18.0) g/dl Hct (42.0-52.0) % MPV (9.4-12.4) fL Immature Gran % (Auto) (0.0-0.4) % Neut % (Auto) (45-73) % Lymph % (Auto) (20-40) % Lymph # (Auto) (1.2-4.9) X10*3/uL Abs Immat Gran (auto) (0.00-0.03) X10*3/uL Absolute Neuts (auto) (2.0-8.3) x10*3/uL Anion Gap 10 L (12-20) BUN 7 L (9-16) mg/dL Urine Protein (Neg-Trace) mg/dL Urine RBC (0-2) /HPF Short CBC 06/05/22 06/06/22 Range/Units 17:35 05:43 WBC 11.7 H 8.9 (4.8-10.8) X10*3/uL Hgb 14.4 13.3 L (14.0-18.0) g/dl Hct 43.6 41.0 L (42.0-52.0) % Plt Count 266 263 (160-400) X10*3/uL BMP 06/05/22 06/06/22 17:35 05:43 Sodium 139 139 Potassium 4.1 4.0 Chloride 106 108 Carbon Dioxide 23 25 BUN 11 7 L Creatinine 0.91 0.85 Calcium 8.8 8.4 Liver Function 06/05/22 Range/Units 17:35 Total Bilirubin 0.3 (0.0-1.0) mg/dL AST 11 (5-37) U/L ALT 12 (0-40) U/L Alkaline Phosphatase 71 (39-117) U/L Albumin 3.9 (3.5-5.0) g/dL Urine 06/05/22 Range/Units 22:03 Urine Color Yellow Urine Appearance Clear Urine pH 5.5 (5.0-9.0) Ur Specific [place] 1.020 (1.005-1.025) Urine Protein 30 (1+) H (Neg-Trace) mg/dL Urine Glucose (UA) Negative (Negative) mg/dL All other labs normal. Imaging Additional studies: CT scan was also reviewed. Assessment and Plan (1) Diverticulitis: Status: Acute Plan Patient has been admitted for conservative therapy and treatment of diverticulitis. Continue current plan of IV antibiotics. Patient can be given p.o. liquids which was communicated to was ER nurse where he is being bordered until an in-hospital room is available. Incentive spirometry, out of bed with assistance, serial labs and exams. Further interventions will be directed by the patient's clinical course. Time Spent With Patient Time: Total time managing care of this patient today ____ minutes. Procedures Date of Service Date of Service: 06/06/22
[2022-06-06 07:08] VITALS: BP 122/68; PULSE 95; RESP 18; O2SAT 98
--- NOTE | 2022-06-06 07:27 | PC.NURSE ---
call placed to s3 for report
--- NOTE | 2022-06-06 07:29 | PC.NURSE ---
rn to call back
--- NOTE | 2022-06-06 07:34 | PC.NURSE ---
report given to dasha
--- NOTE | 2022-06-06 07:55 | HO.PM.IMPN ---
Subjective Subjective Date of Service: 06/06/22 Interval History: f/u on acute diverticulitis interval history:pain is better than yesterday Physical Exam Vital Signs: Vital Signs: Last Vital Signs Temp 97.9 F 06/05/22 19:32 Pulse 95 06/06/22 07:08 Resp 18 06/06/22 07:08 BP 122/68 06/06/22 07:08 Pulse Ox 98 06/06/22 07:08 O2 Del Method Room Air 06/06/22 07:08 BMI result Body Mass Index 36.6 Const: Other: General: AO X 3, no acute distress Resp: CTA bilateral CVS: S1,S2,RRR GI: +BS, mild tenderness Skin: No rash Neuro: motor grossly intact Psych: appropriate affect Objective Data Active Medications Acetaminophen (Acetaminophen 325 Mg Tablet) 650 mg PO Q6H PRN PRN Reason: Pain, Mild (Pain Scale 1-3) Enoxaparin Sodium (Enoxaparin Sodium 40 Mg/0.4 Ml Syringe) 40 mg SUBCUT Q24H [facility] Piperacillin Sod/Tazobactam (Sod 4.5 gm/ Sodium Chloride) 100 mls @ 200 mls/hr IV Q6H [facility] Last Infusion: 06/06/22 06:57 Dose: 0 mls/hr Documented By: ARDEN Melatonin (Melatonin 3 Mg Tablet) 6 mg PO BEDTIME PRN PRN Reason: Insomnia Morphine Sulfate (Morphine Sulfate 4 Mg/Ml Cartridge) 4 mg IVPUSH Q4H PRN; Protocol PRN Reason: Pain, Severe (Pain Scale 7-10) Last Admin: 06/06/22 03:15 Dose: 4 mg Documented By: ARDEN Ondansetron HCl (Ondansetron Hcl 4 Mg/2 Ml Vial) 4 mg IVPUSH Q8H PRN PRN Reason: Nausea and Vomiting Sodium Chloride (0.9 % Sodium Chloride Flush 3 Ml Syringe) 3 ml IVFLUSH QSHIFT [facility] Last Admin: 06/06/22 00:44 Dose: Not Given Documented By: ARDEN Non-Admin Reason: Previously Administered Labs 06/06/22 05:43 06/06/22 05:43 Labs: Laboratory Results - last 24 hr 06/05/22 06/05/22 06/05/22 17:35 17:35 17:35 MCV 88.3 MCH 29.1 MCHC 33.0 RDW 13.0 Plt Count 266 MPV 8.9 L Immature Gran % (Auto) 0.9 H Neut % (Auto) 88.1 H Lymph % (Auto) 7.1 L [place] % (Auto) 3.7 Eos % (Auto) 0.1 Baso % (Auto) 0.1 Lymph # (Auto) 0.8 L [place] # (Auto) 0.4 Eos # (Auto) 0.0 Baso # (Auto) 0.0 Abs Immat Gran (auto) 0.10 H Absolute Neuts (auto) 10.3 H Absolute Nucleated RBC 0.000 Nucleated RBC % (auto) 0.0 PT 11.8 INR 1.0 Anion Gap 14 Estim Creat Clear Calc 128.3 Estimated GFR > 60 Random Glucose 107 Lactic Acid Calcium 8.8 Magnesium 2.3 Total Bilirubin 0.3 AST 11 ALT 12 Alkaline Phosphatase 71 Total Protein 6.7 Albumin 3.9 Lipase 21 Urine Color Urine Appearance Urine pH Ur Specific [place] Urine Protein Urine Glucose (UA) Urine Ketones Urine Blood Urine Nitrite Ur Leukocyte Esterase Urine RBC Urine WBC Ur Squamous Epith Cells Urine Bacteria Hyaline Casts Influenza Type A (PCR) Influenza Type B (PCR) RSV RNA Qual (PCR) SARS-CoV-2 RNA (RT-PCR) 06/05/22 06/05/22 06/05/22 17:35 20:00 22:03 MCV MCH MCHC RDW Plt Count MPV Immature Gran % (Auto) Neut % (Auto) Lymph % (Auto) Mclennan % (Auto) Eos % (Auto) Baso % (Auto) Lymph # (Auto) Mclenn[place] # (Auto) Eos # (Auto) Baso # (Auto) Abs Immat Gran (auto) Absolute Neuts (auto) Absolute Nucleated RBC Nucleated RBC % (auto) PT INR Anion Gap Estim Creat Clear Calc Estimated GFR Random Glucose Lactic Acid 1.0 Calcium Magnesium Total Bilirubin AST ALT Alkaline Phosphatase Total Protein Albumin Lipase Urine Color Yellow Urine Appearance Clear Urine pH 5.5 Ur Specific [place] 1.020 Urine Protein 30 (1+) H Urine Glucose (UA) Negative Urine Ketones Trace Urine Blood Negative Urine Nitrite Negative Ur Leukocyte Esterase Negative Urine RBC 3-5 H Urine WBC 0-5 Ur Squamous Epith Cells 0-2 Urine Bacteria None Seen Hyaline Casts 0-2 Influenza Type A (PCR) NEGATIVE Influenza Type B (PCR) NEGATIVE RSV RNA Qual (PCR) NEGATIVE SARS-CoV-2 RNA (RT-PCR) NEGATIVE 06/06/22 06/06/22 05:43 05:43 MCV 89.9 MCH 29.2 MCHC 32.4 RDW 13.2 Plt Count 263 MPV 8.8 L Immature Gran % (Auto) 0.4 Neut % (Auto) 81.6 H Lymph % (Auto) 12.0 L [place]clennan % (Auto) 5.5 Eos % (Auto) 0.4 Baso % (Auto) 0.1 Lymph # (Auto) 1.1 L [place] # (Auto) 0.5 Eos # (Auto) 0.0 Baso # (Auto) 0.0 Abs Immat Gran (auto) 0.04 H Absolute Neuts (auto) 7.3 Absolute Nucleated RBC 0.000 Nucleated RBC % (auto) 0.0 PT INR Anion Gap 10 L Estim Creat Clear Calc 137.3 Estimated GFR > 60 Random Glucose 102 Lactic Acid Calcium 8.4 Magnesium Total Bilirubin AST ALT Alkaline Phosphatase Total Protein Albumin Lipase Urine Color Urine Appearance Urine pH Ur Specific [place] Urine Protein Urine Glucose (UA) Urine Ketones Urine Blood Urine Nitrite Ur Leukocyte Esterase Urine RBC Urine WBC Ur Squamous Epith Cells Urine Bacteria Hyaline Casts Influenza Type A (PCR) Influenza Type B (PCR) RSV RNA Qual (PCR) SARS-CoV-2 RNA (RT-PCR) Assessment and Plan (1) Diverticulitis: Status: Acute Plan This is a 52-year-old male with no pertinent past medical history and not on prescription medications presents to the emergency department for evaluation of abdominal discomfort.? #.? Acute sigmoid diverticulitis with microperforation. For now conservative management with IV Abx (Zosyn started 06/05), pain management and advancing diet to liquid diet. Surgery (Dr. Woods) following: DVT prophylaxis:? Lovenox 40 mg daily NPO Full code Need for inpatient: complicated diverticulitis, needing IV Abx and possible surgery if worse Time Spent With Patient Time: Total time managing care of this patient today ____ minutes. Quality Stroke Does the patient have a stroke diagnosis?: No VTE Prior VTE?: No VTE Risk Level:: Medical - moderate - high VTE Device Contraindication: Treatment Not Indicated VTE Drug Contraindication: N/A - Med Ordered
--- NOTE | 2022-06-06 08:02 | PHA.MEDREC ---
Pharmacy Consult ? Medication Reconciliation Pharmacy has completed the medication reconciliation.SPOKE WITH PATIENT IN THE ED, PATIENT IS NOT ON ANY PRESCRIPTION MEDICATIONS OR OTC MEDS
[2022-06-06 08:23] VITALS: BP 134/69; PULSE 71; RESP 18; TEMP 36.1; O2SAT 98
[2022-06-06] MEDS: Acetaminophen 325 MG TABLET 650 MG PO (08:29)
[2022-06-06] MEDS: 0.9 % Sodium Chloride Flush 3 ML SYRINGE IVFLUSH ×2 (08:30→14:43)
[2022-06-06] MEDS: Enoxaparin Sodium 40 MG/0.4 ML SYRINGE SUBCUT (08:30)
--- NOTE | 2022-06-06 12:50 | MHC.CM.PN ---
pt is independent lives with his has own ride home dc plan home no servceis is anuja luciano
[2022-06-06 15:23] VITALS: BP 120/71; PULSE 62; RESP 16; TEMP 37.1; O2SAT 97
[2022-06-06 19:14] VITALS: BP 152/62; PULSE 72; RESP 20; TEMP 37.2; O2SAT 98
[2022-06-07] MEDS: 0.9 % Sodium Chloride Flush 3 ML SYRINGE IVFLUSH ×3 (00:15→15:41)
[2022-06-07 02:41] VITALS: BP 134/66; PULSE 73; RESP 16; TEMP 37.4; O2SAT 95
[2022-06-07] MEDS: Piperacillin Sodium/Tazobactam 4.5 GM in 0.9 % Sodium Chloride 100 ML IV ×4 (02:48→19:39)
[2022-06-07 07:48] VITALS: BP 111/64; PULSE 76; RESP 18; TEMP 36.8; O2SAT 95
[2022-06-07] MEDS: Enoxaparin Sodium 40 MG/0.4 ML SYRINGE SUBCUT (08:00)
[2022-06-07] MEDS: Morphine Sulfate 4 MG/ML CARTRIDGE IVPUSH (08:01)
--- NOTE | 2022-06-07 08:15 | PM.PNGS ---
Subjective Subjective Date of Service: 06/07/22 <Noemi Nelson PA-C - Last Filed: 06/07/22 08:18> 06/07/22 <Ronald Woods MD - Last Filed: 06/07/22 11:14> Interval history: Feels much better this morning- pain significantly improved. C/o gas pains today. Tolerating clear liquids. <Noemi Nelson PA-C - Last Filed: 06/07/22 08:18> Physical Exam Vital Signs: Vital Signs: Last Vital Signs Temp 98.2 F 06/07/22 07:48 Pulse 76 06/07/22 07:48 Resp 18 06/07/22 07:48 BP 111/64 06/07/22 07:48 Pulse Ox 95 06/07/22 07:48 O2 Del Method Room Air 06/07/22 07:48 BMI result Body Mass Index 36.6 <Noemi Nelson PA-C - Last Filed: 06/07/22 08:18> Const: General: comfortable, no acute distress and alert <Noemi Nelson PA-C - Last Filed: 06/07/22 08:18> Orientation/consciousness: patient oriented x3 <CHUY Guillermo Last Filed: 06/07/22 08:18> Resp: Effort & Inspection: normal respiratory effort <CHUY Guillermo Last Filed: 06/07/22 08:18> GI: Inspection: No distended and Yes obesity <Noemi Nelson PA-C - Last Filed: 06/07/22 08:18> Palpation (GI): Soft to palpation, nontender, no guarding and not rigid <Noemi Nelson PA-C - Last Filed: 06/07/22 08:18> Percussion: Yes normal to percussion <CHUY Guillermo Last Filed: 06/07/22 08:18> Skin: General skin exam: no rashes or lesions noted <CHUY Guillermo Last Filed: 06/07/22 08:18> Neuro: General: patient oriented x3 <CHUY Guillermo Last Filed: 06/07/22 08:18> Objective Data Active Medications Acetaminophen (Acetaminophen 325 Mg Tablet) 650 mg PO Q6H PRN PRN Reason: Pain, Mild (Pain Scale 1-3) Last Admin: 06/06/22 08:29 Dose: 650 mg Documented By: ESE Docusate Sodium (Docusate Sodium 100 Mg Capsule) 100 mg PO BID [facility] Enoxaparin Sodium (Enoxaparin Sodium 40 Mg/0.4 Ml Syringe) 40 mg SUBCUT Q24H [facility] Last Admin: 06/07/22 08:00 Dose: 40 mg Documented By: RAYRAY Piperacillin Sod/Tazobactam (Sod 4.5 gm/ Sodium Chloride) 100 mls @ 200 mls/hr IV Q6H [facility] Last Admin: 06/07/22 08:00 Dose: 200 mls/hr Documented By: RAYRAY Melatonin (Melatonin 3 Mg Tablet) 6 mg PO BEDTIME PRN PRN Reason: Insomnia Morphine Sulfate (Morphine Sulfate 4 Mg/Ml Cartridge) 4 mg IVPUSH Q4H PRN; Protocol PRN Reason: Pain, Severe (Pain Scale 7-10) Last Admin: 06/07/22 08:01 Dose: 4 mg Documented By: RAYRAY Ondansetron HCl (Ondansetron Hcl 4 Mg/2 Ml Vial) 4 mg IVPUSH Q8H PRN PRN Reason: Nausea and Vomiting Oxycodone HCl (Oxycodone Hcl Immed Release 5 Mg Tablet) 5 mg PO Q4H PRN PRN Reason: Pain, Moderate (Pain Scale 4-6 Sodium Chloride (0.9 % Sodium Chloride Flush 3 Ml Syringe) 3 ml IVFLUSH QSHIFT [facility] Last Admin: 06/07/22 08:01 Dose: 3 ml Documented By: RAYRAY <Noemi Nelson PA-C - Last Filed: 06/07/22 08:18> Labs CBC & Chem 7: 06/06/22 05:43 06/06/22 05:43 <Noemi Nelson PA-C - Last Filed: 06/07/22 08:18> Procedures Date of Service Date of Service: 06/07/22 <Noemi Nelson PA-C - Last Filed: 06/07/22 08:18> Progress Note: A&P Assessment and plan (1) Diverticulitis: Status: Acute <CHUY Guillermo Last Filed: 06/07/22 08:18> Assessment and Plan: 52 year old male admitted with sigmoid diverticulitis with microperforation. He is improving with nonoperative measures. Pain significantly improved, abd very benign and nontender (may be hard to appreciate given body habitus). Afebrile, WBC has normalized. Advance to low residue diet. Rec cont IV abx for another night given microperf and repeat colonoscopy. Home tomorrow if tolerating solid diet and remains stable. Patient comfortable with plan. <Noemi Nelson PA-C - Last Filed: 06/07/22 08:18> Time Spent With Patient Time: Total time managing care of this patient today ____ minutes. <Noemi Nelson PA-C - Last Filed: 06/07/22 08:18> Quality Stroke Does the patient have a stroke diagnosis?: No <Noemi Nelson PA-C - Last Filed: 06/07/22 08:18> VTE Prior VTE?: No <CHUY Guillermo Last Filed: 06/07/22 08:18> VTE Risk Level:: Medical - moderate - high <CHUY Guillermo Last Filed: 06/07/22 08:18> VTE Device Contraindication: Treatment Not Indicated <CHUY Guillermo Last Filed: 06/07/22 08:18> VTE Drug Contraindication: N/A - Med Ordered <CHUY Guillermo Last Filed: 06/07/22 08:18>
--- NOTE | 2022-06-07 08:32 | HO.PM.IMPN ---
Subjective Subjective Date of Service: 06/07/22 Interval History: f/u on acute diverticulitis interval history:pain is better than yesterday and toleraing liquid diet Physical Exam Vital Signs: Vital Signs: Last Vital Signs Temp 98.2 F 06/07/22 07:48 Pulse 76 06/07/22 07:48 Resp 18 06/07/22 07:48 BP 111/64 06/07/22 07:48 Pulse Ox 95 06/07/22 07:48 O2 Del Method Room Air 06/07/22 07:48 BMI result Body Mass Index 36.6 Const: Other: General: AO X 3, no acute distress Resp: CTA bilateral CVS: S1,S2,RRR GI: +BS, mild tenderness, no GD Skin: No rash Neuro: motor grossly intact Psych: appropriate affect Objective Data Active Medications Acetaminophen (Acetaminophen 325 Mg Tablet) 650 mg PO Q6H PRN PRN Reason: Pain, Mild (Pain Scale 1-3) Last Admin: 06/06/22 08:29 Dose: 650 mg Documented By: ESE Docusate Sodium (Docusate Sodium 100 Mg Capsule) 100 mg PO BID [facility] Enoxaparin Sodium (Enoxaparin Sodium 40 Mg/0.4 Ml Syringe) 40 mg SUBCUT Q24H [facility] Last Admin: 06/07/22 08:00 Dose: 40 mg Documented By: RAYRAY Piperacillin Sod/Tazobactam (Sod 4.5 gm/ Sodium Chloride) 100 mls @ 200 mls/hr IV Q6H [facility] Last Admin: 06/07/22 08:00 Dose: 200 mls/hr Documented By: RAYRAY Melatonin (Melatonin 3 Mg Tablet) 6 mg PO BEDTIME PRN PRN Reason: Insomnia Morphine Sulfate (Morphine Sulfate 4 Mg/Ml Cartridge) 4 mg IVPUSH Q4H PRN; Protocol PRN Reason: Pain, Severe (Pain Scale 7-10) Last Admin: 06/07/22 08:01 Dose: 4 mg Documented By: RAYRAY Ondansetron HCl (Ondansetron Hcl 4 Mg/2 Ml Vial) 4 mg IVPUSH Q8H PRN PRN Reason: Nausea and Vomiting Oxycodone HCl (Oxycodone Hcl Immed Release 5 Mg Tablet) 5 mg PO Q4H PRN PRN Reason: Pain, Moderate (Pain Scale 4-6 Sodium Chloride (0.9 % Sodium Chloride Flush 3 Ml Syringe) 3 ml IVFLUSH QSHIFT [facility] Last Admin: 06/07/22 08:01 Dose: 3 ml Documented By: RAYRAY Dennison 06/06/22 05:43 06/06/22 05:43 Assessment and Plan (1) Diverticulitis: Status: Acute Plan This is a 52-year-old male with no pertinent past medical history and not on prescription medications presents to the emergency department for evaluation of abdominal discomfort.? #.? Acute sigmoid diverticulitis with microperforation. For now conservative management with IV Abx (Zosyn started 06/05), pain management and advancing diet to low residue today. Surgery (Dr. Woods) following, 1 more day of IV antibiotic then DC home tomorrow with PO Augmentin 875 bid x 7 days or Levaquin 750 daily + Flagyl 500 bid x 7 days. Out of bed ambulate DVT prophylaxis:? Lovenox 40 mg daily NPO Full code Need for inpatient: complicated diverticulitis, needing IV Abx and possible surgery if worse Time Spent With Patient Time: Total time managing care of this patient today ____ minutes. Quality Stroke Does the patient have a stroke diagnosis?: No VTE Prior VTE?: No VTE Risk Level:: Medical - moderate - high VTE Device Contraindication: Treatment Not Indicated VTE Drug Contraindication: N/A - Med Ordered
[2022-06-07] MEDS: Docusate Sodium 100 MG CAPSULE PO ×2 (10:39→19:48)
--- NOTE | 2022-06-07 15:15 | P.CDIM_ITS ---
PROVIDER RESPONSE TEXT: To clarify, the appropriate diagnosis supported by the clinical indicators: Obesity Due to excess calories QUERY TEXT: PHYSICIAN'S DOCUMENTATION REQUEST Date of Query: 06/07/2022 12:23 PM EDT Patient Name: Blanco Irizarry Admit Date: 06/06/2022 Dear Brian Levin, A review of the medical record indicates additional documentation may be needed. Please review below and update the documentation accordingly. Clinical Indicators: BMI 36.6 122.47kg Surgery note 06/07 - Sigmoid diverticulitis, improving with nonoperative measures, abd very benign and nontender ( may be hard to appreciate due to body habitus). If possible, please provide an associated diagnosis related to the abnormal BMI, such as: Overweight Obesity Due to excess calories Obesity Due to other cause Specify the other cause Unable to determine Other (explain) Clinically unable to determine (explain) Thank you, Arlyn Dan, CCS, CDIS Use of terms such as suspected, likely, concern for, or probable (associated with a specific diagnosi s that is being evaluated, monitored, or treated as if it exists) are acceptable and can be coded in the inpatient se tting, when documented at the time of discharge. Please use your independent medical judgment in providing your response. THIS QUERY IS PART OF THE PERMANENT MEDICAL RECORD
[2022-06-07 15:31] VITALS: BP 144/71; PULSE 72; RESP 20; TEMP 36.3; O2SAT 97
[2022-06-07] MEDS: oxyCODONE HCl Immed Release 5 MG TABLET PO (19:34)
[2022-06-07 19:37] VITALS: BP 139/61; PULSE 63; RESP 18; TEMP 36.7; O2SAT 97
[2022-06-08] MEDS: 0.9 % Sodium Chloride Flush 3 ML SYRINGE IVFLUSH ×2 (00:31→08:12)
[2022-06-08] MEDS: Piperacillin Sodium/Tazobactam 4.5 GM in 0.9 % Sodium Chloride 100 ML IV ×2 (01:11→08:12)
[2022-06-08 04:00] VITALS: BP 122/72; PULSE 67; RESP 16; TEMP 36.2; O2SAT 96
[2022-06-08 07:47] VITALS: BP 139/73; PULSE 57; RESP 20; TEMP 36.4; O2SAT 98
[2022-06-08] MEDS: Enoxaparin Sodium 40 MG/0.4 ML SYRINGE SUBCUT (08:12)
[2022-06-08] MEDS: oxyCODONE HCl Immed Release 5 MG TABLET PO (08:12)
[2022-06-08] MEDS: Docusate Sodium 100 MG CAPSULE PO (08:12)
--- NOTE | 2022-06-08 09:04 | PM.PNGS ---
Subjective Subjective Date of Service: 06/08/22 <Noemi Nelson PA-C - Last Filed: 06/08/22 09:10> 06/08/22 <Ronald Woods MD - Last Filed: 06/08/22 09:23> Interval history: Feels well this morning, has very minimal pain. Tolerating solid diet without worsening pain. Wants to go home. <Noemi Nelson PA-C - Last Filed: 06/08/22 09:10> Physical Exam Vital Signs: Vital Signs: Last Vital Signs Temp 97.6 F 06/08/22 07:47 Pulse 57 06/08/22 07:47 Resp 20 06/08/22 07:47 BP 139/73 06/08/22 07:47 Pulse Ox 98 06/08/22 07:47 O2 Del Method Room Air 06/08/22 07:47 BMI result Body Mass Index 36.6 <Noemi Nelson PA-C - Last Filed: 06/08/22 09:10> Const: General: comfortable, no acute distress and alert <Noemi Nelson PA-C - Last Filed: 06/08/22 09:10> Orientation/consciousness: patient oriented x3 <CHUY Guillermo Last Filed: 06/08/22 09:10> Resp: Effort & Inspection: normal respiratory effort <Noemi Nelson PA-C - Last Filed: 06/08/22 09:10> GI: Inspection: No distended and Yes obesity <Noemi Nelson PA-C - Last Filed: 06/08/22 09:10> Palpation (GI): Soft to palpation, nontender, no guarding and not rigid <Noemi Nelson PA-C - Last Filed: 06/08/22 09:10> Skin: General skin exam: no rashes or lesions noted <CHUY Guillermo Last Filed: 06/08/22 09:10> Neuro: General: patient oriented x3 and moves all extremities <CHUY Guillermo Last Filed: 06/08/22 09:10> Objective Data Active Medications Acetaminophen (Acetaminophen 325 Mg Tablet) 650 mg PO Q6H PRN PRN Reason: Pain, Mild (Pain Scale 1-3) Last Admin: 06/06/22 08:29 Dose: 650 mg Documented By: ESE Docusate Sodium (Docusate Sodium 100 Mg Capsule) 100 mg PO BID [facility] Last Admin: 06/08/22 08:12 Dose: 100 mg Documented By: RAYRAY Enoxaparin Sodium (Enoxaparin Sodium 40 Mg/0.4 Ml Syringe) 40 mg SUBCUT Q24H [facility] Last Admin: 06/08/22 08:12 Dose: 40 mg Documented By: RAYRAY Piperacillin Sod/Tazobactam (Sod 4.5 gm/ Sodium Chloride) 100 mls @ 200 mls/hr IV Q6H [facility] Last Infusion: 06/08/22 09:03 Dose: 0 mls/hr Documented By: RAYRAY Melatonin (Melatonin 3 Mg Tablet) 6 mg PO BEDTIME PRN PRN Reason: Insomnia Morphine Sulfate (Morphine Sulfate 4 Mg/Ml Cartridge) 4 mg IVPUSH Q4H PRN; Protocol PRN Reason: Pain, Severe (Pain Scale 7-10) Last Admin: 06/07/22 08:01 Dose: 4 mg Documented By: RAYRAY Ondansetron HCl (Ondansetron Hcl 4 Mg/2 Ml Vial) 4 mg IVPUSH Q8H PRN PRN Reason: Nausea and Vomiting Oxycodone HCl (Oxycodone Hcl Immed Release 5 Mg Tablet) 5 mg PO Q4H PRN PRN Reason: Pain, Moderate (Pain Scale 4-6 Last Admin: 06/08/22 08:12 Dose: 5 mg Documented By: RAYRAY Sodium Chloride (0.9 % Sodium Chloride Flush 3 Ml Syringe) 3 ml IVFLUSH QSHIFT [facility] Last Admin: 06/08/22 08:12 Dose: 3 ml Documented By: RAYRAY <Noemi Nelson PA-C - Last Filed: 06/08/22 09:10> Labs CBC & Chem 7: 06/06/22 05:43 06/06/22 05:43 <Noemi Nelson PA-C - Last Filed: 06/08/22 09:10> Procedures Date of Service Date of Service: 06/08/22 <Ronald Woods MD - Last Filed: 06/08/22 09:23> Progress Note: A&P Assessment and plan (1) Diverticulitis: Status: Acute <Noemi Nelson PA-C - Last Filed: 06/08/22 09:10> Assessment and Plan: 52 year old male admitted with sigmoid diverticulitis with microperforation. He has improving with nonoperative measures. Pain significantly improved and essentially resolved, abd nontender. Stable for discharge to home today on course of oral antibiotics. Patient comfortable with plan. F/u with PCP. Referral to GI for repeat colonoscopy once acute episode resolves. <Noemi Nelson PA-C - Last Filed: 06/08/22 09:10> Time Spent With Patient Time: Total time managing care of this patient today ____ minutes. <Noemi Nelson PA-C - Last Filed: 06/08/22 09:10> Quality Stroke Does the patient have a stroke diagnosis?: No <Noemi Nelson PA-C - Last Filed: 06/08/22 09:10> VTE Prior VTE?: No <Noemi Nelson PA-C - Last Filed: 06/08/22 09:10> VTE Risk Level:: Medical - moderate - high <Noemi Nelson PA-C - Last Filed: 06/08/22 09:10> VTE Device Contraindication: Treatment Not Indicated <Noemi Nelson PA-C - Last Filed: 06/08/22 09:10> VTE Drug Contraindication: N/A - Med Ordered <CHUY Guillermo Last Filed: 06/08/22 09:10>
[2022-06-08] MEDS: Amoxicillin/Potassium Clav 875 MG TABLET PO (12:18)
--- NOTE | 2022-06-08 13:18 | P.DS_ITS ---
DS: Providers Provider Date of Service: 06/08/22 Date of admission: 06/05/22 23:25 Date of discharge: 06/08/22 Primary care physician: None Physician Consults: 06/05/22 23:31 Consult to General Surgery Routine Consulting Provider: [facility] General Surgeons Reason for consultation: colitis with ?microperforation DS: Diagnosis Discharge Diagnosis (1) Diverticulitis: Status: Acute DS: Summary Hospital Course Hospital Course: 52-year-old male with no pertinent past medical history and not on prescription medications presents to the emergency department for evaluation of abdominal discomfort.? Patient states that it started 3 days ago, on the left side, constant, nonradiating and without any relieving factors.? Soon it generalized associated with nausea and poor appetite.? No similar complaints in the past.? Patient denies fever, chills, vomiting, chest discomfort, palpitations, shortness of breath, changes in urinary habits.? Does endorse constipation. In the emergency department imaging concerning for diverticulitis with questionable microperforation. Hospital course: Patient came to the hospital with abdominal pain found to have sigmoid diverticulitis with microperforation-started on IV antibiotic , supportive care- pain management with morphine and bowel rest and seen by surgery: Patient seems to be improved with above care, surgery recommended no acute intervention and since patient is improving and tolerating diet, patient will go home with p.o. antibiotic. Please complete the course of antibiotic for 7 days. Surgery also recommended outpatient colonoscopy once acute episode resolves. Patient has obesity: Encouraged to lose weight. plan: Complete the course of antibiotics for 7 days. outpatient colonoscopy once acute episode resolves. Above management discussed with the patient in detail length she understand and in agreement with the above plan, time spent 50 minutes and 50% time spent on counseling. Time Spent with Patient Time attestation: Total time managing care of this patient today ____ minutes. Discharge coordination time: Greater than 30 minutes Quality: Safe Use of Opioids Does Pt have an Active Cancer Diagnosis on the Problem List?: No Quality: Stroke Does the patient have a stroke diagnosis?: No Physical Exam Vital Signs: Vital Signs: Last Vital Signs Temp 97.6 F 06/08/22 07:47 Pulse 57 06/08/22 07:47 Resp 20 06/08/22 07:47 BP 139/73 06/08/22 07:47 Pulse Ox 98 06/08/22 07:47 O2 Del Method Room Air 06/08/22 07:47 BMI result Body Mass Index 36.6 General: AO X 3, no acute distress Resp:? CTA bilateral CVS: S1,S2,RRR GI: +BS, mild tenderness, no GD Skin: No rash Neuro:? motor grossly intact Psych: appropriate affect DS: Data Imaging Chest x-ray: Radiologist's impression: ITS Impressions Abdomen/Pelvis CT 06/05/22 17:20 IMPRESSION: Sigmoid colon diverticulitis versus colitis with microperforation. Small amount of free air collection in the mesentery Fleischner guidelines were followed. Discharge Plan Discharge Anticipated Discharge Date/Time: 06/08/22 11:43 Patient Disposition: Home, Self-Care Discharge Diagnosis: Sigmoid diverticulitis Referrals: Jillian Fischer MD [Physician] - 2 Weeks (colonoscopy) Physician,None [Primary Care Provider] - 1 Week Discharge Medications: New docusate sodium 100 mg Capsule 100 mg PO BID Qty: 10 0RF oxycodone 5 mg Tablet 5 mg PO Q4H PRN (Reason: Pain, Moderate (Pain Scale 4-6) Qty: 4 0RF Rx Instructions: Partial Fill upon patient request. amoxicillin-pot clavulanate 875-125 mg tablet 1 tab PO BID Qty: 14 0RF Discharge Orders: Discharge Order (Routine); Ordered 06/08/22 Ordered By: Sukhjinder Vivas Diet: Low fat, low cholesterol Activity on Discharge: As tolerated Stand Alone Forms: Patient Portal Discharge page, Work/School Release Care Plan Goals: Patient came to the hospital with abdominal pain found to have sigmoid diverticulitis with microperforation-started on IV antibiotic , supportive care- pain management with morphine and bowel rest and seen by surgery: Patient seems to be improved with above care, surgery recommended no acute intervention and since patient is improving and tolerating diet, patient will go home with p.o. antibiotic. Please complete the course of antibiotic for 7 days. Surgery also recommended outpatient colonoscopy once acute episode resolves. Patient has obesity: Encouraged to lose weight. Health Concerns: As above. Plan of Treatment: As above. Assessment: As above. Patient Instructions: Low Fiber Diet (DC)
== END 2022-06-08 12:30 | disposition home or self-care (01) | DRG 244 ==
LOC: HO.ED 21:59 → HO.EDOVER 23:29 → HO.S3 06-06 07:22
PROVIDERS: Physician Assistant Medical; Admitting Provider Student in an Organized Health Care Education/Training Program; Emergency Provider Internal Medicine; Visit Provider Internal Medicine
DX: K57.20 Diverticulitis of large intestine with perforation and abscess without bleeding (principal); E66.9 Obesity, unspecified; Z68.36 Body mass index [BMI] 36.0-36.9, adult; Z20.822 Contact with and (suspected) exposure to COVID-19
CPT/HCPCS: 0241U; 36415; 74176; 80048; 80053; 81001; 83605; 83690; 83735; 85025; 85610; 99285; J1650; J2270; J2405; J2543